=== PATIENT | male | born 1950 | race Caucasian/White ===

== ENCOUNTER 2016-12-24 11:52 | Inpatient (IN) | payer MEDICARE ==
--- NOTE | ~2016-12-24 | HP ---
Unit #: [id number] #: [id number] Patient: PRITI HELM [id number] [address] [place], [place] [address] [id number] I MR#: [id number] NAME: PRITI HELM. ROOM: [id number] Age: 66 Sex: M Admission Date: 12/24/2016 : 1950 Attending Physician: Macie Odom M.D. Primary Care Physician: Antonino Hanson M.D. HISTORY AND PHYSICAL REASON FOR ADMISSION Scrotal abscess. HISTORY OF PRESENT ILLNESS The patient is a 66-year-old male who underwent an inflatable penile prosthesis by my partner, Dr. Jamshid Oconnell, in 2012. Patient presents with a two-day history of scrotal pain and swelling after using his inflatable penile prosthesis. He has had no fevers or chills. He is on Coumadin for a mitral valve replacement and atrial fibrillation. PAST MEDICAL HISTORY 1. Congestive heart failure. 2. Stroke. 3. Hypertension. 4. Hyperlipidemia. 5. Guillain-Buffalo syndrome. 6. Atrial fibrillation. PAST SURGICAL HISTORY 1. Inflatable penile prosthesis. 2. Mitral valve replacement. 3. Jaw surgery for some type of malignancy. HOME MEDICATIONS Documented in the chart. ALLERGIES No known drug allergies. SOCIAL HISTORY Negative for tobacco, alcohol, or drug use. REVIEW OF SYSTEMS Negative for fever, negative for chills. Positive for scrotal pain. PHYSICAL EXAMINATION VITAL SIGNS: Temperature 98.7, blood pressure 157/71, pulse 82, and respirations 18. HEENT: Normocephalic and atraumatic. Patient is breathing comfortably. ABDOMEN: Soft, nontender, and nondistended. GENITOURINARY: Cylinders of his penile prosthesis, as well as the pump are intact. Well below this in the upper perineal area is an area of induration. There is no cellulitis. There is no purulence. Unit #: [id number] #: [id number] Patient: PRITI HELM DIAGNOSTIC STUDIES LABORATORY: Significant for white blood cell count of 9.8 and creatinine of 1. Hemoglobin is 12.8. INR is 2.8. ASSESSMENT AND PLAN Scrotal or perineal abscess. I do think he needs an incision and drainage, but his INR is 2.8. We will give him fresh frozen plasma tonight, and he will likely need incision and drainage tomorrow. He is nontoxic. He will be started on Zosyn and vancomycin. He understands that this may ultimately require removal of his inflatable penile prosthesis, but it may not be communicating, and there is a possibility that it may be savable at this point. We appreciate the opportunity to participate in his care. Dictated by Antonella Mckeon/selam TD: 12/24/2016 18:56 JOB #: [id number] HISTORY AND PHYSICAL X Beneditco Wei MD X HISTORY AND PHYSICAL
--- NOTE | ~2016-12-24 | CR72 ---
[facility] A Service of [facility] & [facility] RADIOLOGY TEXT RESULTS PATIENT: PRITI HELM LOCATION: [facility] : 48 UNIT #: [id number] AGE: [address]: Macie Odom MD SEX: M ORDER DR: [id number] [facility] [address] [facility]. [place], [place] [address] [id number] I MR#: [id number] Acc #: [id number] NAME: PRITI HELM. : 1950 SEX: M STUDY DATE/TIME: 12/24/2016 20:22 UNIT: [facility] ROOM: [facility] STUDY DESCRIPTION: CR Chest Single View Portable Attending Physician: Macie Odom M.D. Ordering Physician: Macie Odom M.D. Primary Care Physician: Antonino Hanson M.D. MEDICAL IMAGING REPORT This report is preliminary unless electronic signature is present EXAM Single view chest, 12/24/16 at 20:22 hours COMPARISON STUDIES Single view chest dated 12/09/15 at 11:33 hours HISTORY Preop evaluation post scrotal cellulitis and pain which started on Friday. History of lymphoma. FINDINGS Single view of the chest was obtained. Postoperative cardiac changes are noted with aortic valve replacement, stable. Heart is of normal size. Lungs do not demonstrate any superimposed acute abnormality. No pleural effusion, pneumothorax or obvious lung mass. Dictated by... Serafin Harrell M.D. THIS IS AN ELECTRONICALLY VERIFIED REPORT Serafin Harrell M.D. at 12/25/2016 10:44 AM CPR/ea TD: 12/25/2016 04:52 JOB #: [id number] MEDICAL IMAGING REPORT COPY
--- NOTE | ~2016-12-24 | OR ---
Unit #: [id number] #: [id number] Patient: PRITI HELM [id number] [address] [place], [place] [address] [id number] I MR#: [id number] NAME: PRITI HELM. ROOM: [facility] Date of Procedure: 12/25/2016 Admission Date: 12/24/2016 Surgeon: Jamshid Oconnell M.D. : 1950 Attending Physician: Macie Odom M.D. Primary Care Physician: Antonino Hanson M.D. OPERATIVE REPORT PREOPERATIVE DIAGNOSES History of penile prosthesis, perineal abscess. POSTOPERATIVE DIAGNOSES History of penile prosthesis, perineal abscess. PROCEDURE PERFORMED I and D of perineal abscess. ANESTHESIA General. ESTIMATED BLOOD LOSS Minimal. FLUIDS Crystalloid. DRAINS None. SPECIMENS Wound swab for culture and sensitivity. COMPLICATIONS None. CONDITION Stable. INDICATIONS FOR PROCEDURE The patient has a history of perineal abscess, history of inflatable penile prosthesis, presents today for I and D of perineal abscess. The risks, benefits and alternatives of the procedure were extensively counseled to the patient. Chief among these are bleeding, infection, injury to the surrounding soft tissues, need for further procedure. We discussed risk of involvement of IPP, requiring explantation and anesthetic complications. An informed consent was obtained. The patient elected to proceed. DESCRIPTION OF PROCEDURE The patient was properly identified, brought back to the operating room, Unit #: [id number] #: [id number] Patient: PRITI HELM having received preoperative broad-spectrum IV antibiotics of vancomycin and gentamicin. The patient was placed on the operating table in supine position. Following induction of general anesthesia, the patient was placed in the dorsal lithotomy position. The patient's genitals were prepped and draped in sterile fashion. Perineal abscess was opened with a 10 blade scalpel for approximately 5 cm with evacuation of purulent return. This was swabbed for culture and sensitivity. We explored the pocket, which tracked lateral to the scrotum, back towards the anus, stopping approximately 3 to 4 cm shy of the anus itself. This tracked lateral to the scrotum on both sides, but did not appear to involve the IPP directly or any of the tubing or components. We copiously irrigated the wound and obtained hemostasis with Bovie electrocautery and packed the wound with moist Kerlix roll. The patient tolerated the procedure with no complications. Dictated by... Antonella Jules/leticia TD: 12/26/2016 04:11 JOB #: [id number] OPERATIVE REPORT X Jamshid Oconnell MD X PROCEDURE OPERATIVE NOTE
--- NOTE | ~2016-12-24 | CO ---
Unit #: [id number] #: [id number] Patient: PRITI HELM [id number] [address] [address] [id number] I MR#: [id number] NAME: PRITI HELM. ROOM: 225 Age: 66 Sex: M Admission Date: 12/24/2016 : 1950 Attending Physician: Macie Odom M.D. Primary Care Physician: Antonino Hanson M.D. Consultation Date: 12/27/2016 CONSULTATION REPORT REASON FOR CONSULTATION Antibiotic management in a patient with scrotal abscess. HISTORY OF PRESENT ILLNESS This is a 66-year-old male who for the last week or so at home had a developing boil on his scrotum per patient report. The patient reports that he did not feel well, but did not have any specific fever or temperature. The patient as using a topical agent on his scrotal wound, but it did not improve. The patient was admitted to the hospital for further intervention. The patient does have a history of an implantable penile prosthetic placed in 2012. He also had a history of a MVR as well. The patient is now status post incision and drainage of abscess in the scrotal region. Per the operative note, it does not involve the penile implant. Cultures have grown MRSA and the patient is maintained on vancomycin and Zosyn. Due to the patient having a history of an artificial heart valve and penile implant, infectious disease is asked to evaluate for further antibiotic management. PAST MEDICAL HISTORY 1. Congestive heart failure. 2. Stroke. 3. Hypertension. 4. Hyperlipidemia. 5. Guillain Downs syndrome in 2008. 6. Atrial fibrillation. PAST SURGICAL HISTORY 1. Implantable penile prosthetic. 2. Mitral valve replacement. 3. Jaw surgery for unknown malignancy. SOCIAL HISTORY No tobacco, alcohol or drug use. ALLERGIES No known drug allergies. CURRENT MEDICATIONS 1. Vancomycin. 2. Zosyn. 3. For further medications please refer to the patient's MAR. REVIEW OF SYSTEMS The patient reports some subjective fever, but no current fever, chills or Unit #: [id number] #: [id number] Patient: PRITI HELM sweats. He denies any nausea, vomiting or diarrhea. He denies any shortness of breath or chest pain. The patient does report some discomfort in his scrotal region and also developing in his left groin region. PHYSICAL EXAMINATION GENERAL: The patient is in no apparent distress. He is resting in the bed comfortably. VITALS: Temperature 98.1 with a T-max of 100.7, pulse 82, blood pressure 151/67, respiratory rate 16. HEENT: Pupils are equal. NECK: Supple. LUNGS: Clear to auscultation bilaterally with no wheezes or rhonchi noted. HEART: S1 and S2. Regular rate and rhythm. ABDOMEN: Positive bowel sounds. Soft and nontender with no organomegaly appreciated. EXTREMITIES: No clubbing, cyanosis or edema. GENITALIA: His scrotal wound has recently been packed by the staff and there is no report of purulent drainage. There was noted to be some left groin induration and erythema noted. DIAGNOSTIC STUDIES IMAGING: Ultrasound of the scrotum on 12/24/2016 showed penile pump within the scrotum that was intact. No free fluid in the scrotum. Skin thickening suspicious for cellulitis with small abscess. LABORATORY: BUN 24, creatinine 1.3, sodium 135, potassium 3.5, chloride 107, CO2 25, bilirubin 1.4, AST 20, ALT 12. White blood cell count 6.2, hemoglobin 10.6, hematocrit 31, platelets 140. Urinalysis is unremarkable. Groin culture from 12/25/2016 shows MRSA with an (1) to vancomycin of 1. Urine culture is negative. ASSESSMENT/PLAN This is a 66-year-old male with a history of penile pump implantation as well as mitral valve replacement. The patient lives at home and developed a one-week history of scrotal abscess. The patient is status post incision and drainage with cultures showing MRSA. At this time the patient is not febrile and appears stable, but due to history of multiple artificial devices in place will recommend to continue vancomycin. Will discontinue Zosyn and add Flagyl for additional anaerobic coverage. Will also consider adding rifampin. Will check blood cultures times two 30 minutes apart. Will check a CBC and BMP in the a.m. and will also check a CT scan of the pelvis to rule out any new or developing abscess in light of his left groin induration and erythema that is developing. His case will be discussed with Dr. Benson Dhaliwal, who will evaluate later today. Thank you for allowing us to participate in the care of this patient. Further recommendations will follow pending the patient's clinical course. Dictated by... Jaki Law A.P.R.N. SLS/gz TD: 12/27/2016 10:21 Unit #: [id number] #: [id number] Patient: PRITI HELM JOB #: [id number] CONSULTATION REPORT X X CONSULTATION REPORT
--- NOTE | ~2016-12-24 | CO ---
Unit #: [id number] #: [id number] Patient: PRITI HELM [id number] [address] [address] [id number] I MR#: [id number] NAME: PRITI HELM. ROOM: 225 Age: 66 Sex: M Admission Date: 12/24/2016 : 1950 Attending Physician: Macie Odom M.D. Primary Care Physician: Antonino Hanson M.D. Consultation Date: 12/24/2016 CONSULTATION REPORT ADDENDUM I spoke with Dr. Yen, who was talent acquisition assistant for Dr. Wei, with Urology regarding FFP in a patient with mechanical valve. He agreed that we would hold the FFP and give p.o. vitamin K. Dictated by... Macie Odom M.D. KEO/jonathan TD: 12/24/2016 21:16 JOB #: [id number] CONSULTATION REPORT X Macie Oodm MD X CONSULTATION REPORT
--- NOTE | ~2016-12-24 | CO ---
Unit #: [id number] #: [id number] Patient: PRITI HELM [id number] [address] [place], [place] [address] [id number] I MR#: [id number] NAME: PRITI HELM. ROOM: 225 Age: 66 Sex: M Admission Date: 12/24/2016 : 1950 Attending Physician: Macie Odom M.D. Primary Care Physician: Antonino Hanson M.D. Consultation Date: 12/24/2016 CONSULTATION REPORT REASON FOR CONSULTATION Medical management. HISTORY OF PRESENT ILLNESS The patient is a 66-year-old male with a past medical history of hypertension, hyperlipidemia, cerebrovascular accident, Guillain-Bogue Chitto syndrome, atrial fibrillation, valvular heart disease, and chronic anticoagulation, who was admitted by Dr. Wei for a scrotal abscess. HIPS was consulted for medical management. The patient has a penile implant. He noticed a bump in his scrotal area two days ago. He states that it has increased in size and has become increasingly painful. He states that he has had chills and undocumented fever. He denies any vomiting or diarrhea, no chest pain or difficulty breathing, no cough or cold symptoms, no urinary symptoms, and no abdominal pain. In the emergency department, a scrotal ultrasound was done and showed findings concerning for cellulitis. White blood cell count is 9.8. INR was 2.8. Again, he was admitted by Dr. Wei for further treatment. He has started him on Zosyn and vancomycin and plans for incision and drainage in the morning. PAST MEDICAL HISTORY 1. Admission to [facility] December 09-2015, for left lower extremity abscess and cellulitis. He underwent incision and drainage during that admission. 2. Chronic atrial fibrillation. 3. Congestive heart failure. 4. Valvular heart disease, status post mechanical mitral valve replacement. 5. History of cerebrovascular accident. 6. Hypertension. 7. Hyperlipidemia. PAST SURGICAL HISTORY 1. Mitral valve replacement with mechanical valve. 2. Penile implant. 3. Jaw surgery. SOCIAL HISTORY The patient lives with his girlfriend. There is no tobacco, alcohol, or illicit drug use. FAMILY HISTORY His mother had a brain tumor, and his dad had lung cancer. Unit #: [id number] #: [id number] Patient: PRITI HELM ALLERGIES No known allergies. HOME MEDICATIONS 1. Vitamin E. 2. Warfarin. 3. Omeprazole. 4. Metoprolol. 5. Flomax. 6. Simvastatin. REVIEW OF SYSTEMS A complete review of systems is negative except as indicated in the History of Present Illness. PHYSICAL EXAMINATION VITAL SIGNS: Temperature is 98, pulse 80, respirations 15, and blood pressure 145/72. GENERAL: Patient is a male who is awake and alert. HEENT: Head is atraumatic. Mucous membranes are moist. NECK: Supple. Trachea is midline. CARDIOVASCULAR: Regular rate and rhythm. LUNGS: Clear to auscultation bilaterally with no increased work of breathing. ABDOMEN: Soft and nontender with bowel sounds present in all four quadrants. EXTREMITIES: Nontender with no pedal edema. NEUROLOGIC: Patient is awake and alert. He follows commands. PSYCHIATRIC: Mood and affect are normal. Patient is cooperative. SKIN: Skin of examined areas is warm and dry. DIAGNOSTIC STUDIES LABORATORY: INR is 2.8. Complete blood count notable for hemoglobin and hematocrit of 12.8 and 37.3, respectively, and platelets are 134,000. Basic metabolic panel notable for a potassium of 3.4. IMAGING: Scrotal ultrasound shows findings suggestive of cellulitis. ASSESSMENT The patient is a 66-year-old male with: 1. Scrotal abscess. Dr. Wei has ordered two units of fresh frozen plasma. The patient does have a history of mechanical valve. I was going to discuss with him whether or not the procedure was needed emergently. Perhaps vitamin K could be given and surgery delayed a couple of days withholding Coumadin. He may need cardiac clearance as well. 2. Hypokalemia. 3. Hypertension. 4. Hyperlipidemia. 5. History of cerebrovascular accident. 6. History of Guillain-Bogue Chitto syndrome. 7. History of atrial fibrillation. 8. Valvular heart disease, status post mitral valve replacement with mechanical valve. 9. Chronic anticoagulation with Coumadin. The patient's INR is 2.8. PLAN 1. Regarding possible incision and drainage in the morning, I have Unit #: [id number] #: [id number] Patient: PRITI HELM ordered an EKG, as well as chest x-ray as a part of preoperative evaluation. I am also waiting for a call from Dr. Wei as stated above regarding use of FFP. I have ordered vitamin K. Will also consult Dr. Mcclendon for cardiac clearance if okay with Dr. Wei. 2. Regarding hypokalemia, I have ordered potassium/magnesium protocol. Thank you very much for the consultation. Will follow patient along closely with you. Dictated by... Antonella Mckeon/selam TD: 12/24/2016 21:15 JOB #: [id number] CONSULTATION REPORT X Macie Odom MD X CONSULTATION REPORT
--- NOTE | ~2016-12-24 | DS ---
Unit #: [id number] #: [id number] Patient: PRITI HELM [id number] [address] [place], [place] [address] [id number] I MR#: [id number] NAME: PRITI HELM. ROOM: 225 Age: 66 Sex: M Admission Date: 12/24/2016 : 1950 Discharge Date: 12/29/2016 Attending Physician: Macie Odom M.D. Primary Care Physician: Antonino Hanson M.D. DISCHARGE SUMMARY FINAL DIAGNOSIS Scrotal abscess status post incision and drainage. SECONDARY DIAGNOSES 1. Congestive heart failure. 2. Stroke. 3. Hypertension. 4. Hyperlipidemia. 5. Guillain-Chrisney syndrome. 6. Atrial fibrillation. 7. Mechanical mitral valve. CONSULTS 1. Dr. Wei, urology. 2. Dr. Mcclendon, cardiology. 3. Dr. Dhaliwal, infectious disease. PROCEDURES The patient had, on December 25, 2016, I and D of perineal abscess. HOSPITAL COURSE The patient is a 66 year old who presented with swelling and redness of his scrotum. He had been diagnosed with abscess of his groin, and this ended up being incised and drained on December 25. He does have a mechanical mitral valve, for which he was put on heparin. However, immediately postop he was being transitioned back to Coumadin while still on heparin. The patient insists on going home today and states that he has been bridged with Lovenox in the past while waiting to be therapeutic on Coumadin for all his procedures, and since this being the only issue at this point, I have had a discussion with Dr. Mcclendon and we have agreed that he will go home on Lovenox 1 mg/kg subcu b.i.d. with Coumadin 5 mg p.o. daily. He will have his ProTime checked on 12/31/16. He does attend a Coumadin clinic he tells me. The patient also tells me that he does have about 7 doses of Lovenox residual from his last bridging treatment. Other than that, his pain seems to be well controlled. He is evaluated, suitable and stable for discharge. He will be discharged in stable condition. Dr. Dhaliwal of infectious disease recommends he be transitioned to Zyvox 600 mg p.o. b.i.d. until 01/07/17. MEDICATIONS ON DISCHARGE 1. Flomax 0.4 mg p.o. daily. 2. Coumadin 5 mg p.o. daily. 3. Lopressor 50 mg p.o. b.i.d. 4. Vitamin E 400 units p.o. b.i.d. Unit #: [id number] #: [id number] Patient: PRITI HELM 5. Simvastatin 20 mg p.o. daily. 6. Omeprazole 20 mg p.o. daily. 7. Potassium 10 mEq p.o. daily per home dose. 8. Lovenox 80 mg subcu b.i.d. 9. Zyvox 600 mg p.o. b.i.d. for 9 days until 01/07/17. DISCHARGE PLAN The patient will attend the Coumadin clinic on 12/31/16 and follow up with his PCP in the next 3-5 days. NOTE: Time spent coordinating discharge was about 40 minutes. The shoe parts caser will ensure that the patient is able to obtain Zyvox prior to discharge. He will also be discharged home with home health. Dictated by... Antonella Villanueva TD: 12/29/2016 13:35 JOB #: [id number] DISCHARGE SUMMARY X Roland Galicia MD X DISCHARGE SUMMARY
--- NOTE | ~2016-12-24 | EKG ---
PATIENT: PRITI HELM UNIT #: [id number] Ventricular Rate: 90 BPM Atrial Rate: 90 BPM P-R Interval: 188 ms QRS Duration: 98 ms Q-T Interval: 388 ms QTC Calculation(Bezet): 474 ms P Westover: 46 degrees Calculated R Westover: 18 degrees Calculated T Westover: -171 degrees Diagnosis Line: Normal sinus rhythm Diagnosis Line: Left ventricular hypertrophy with repolarization Diagnosis Line: abnormality Diagnosis Line: Abnormal ECG Diagnosis Line: When compared with ECG of 09-DEC-2015 11:12, Diagnosis Line: Aberrant conduction is no longer Present Diagnosis Line: QT has shortened Diagnosis Line: Confirmed by JENNIFER MARTINEZ MD ([id number]) on 12/26/2016 Diagnosis Line: 11:13:37 AM INTERPRETING MD: MICHELLE ALMONTE
--- NOTE | ~2016-12-24 | CT105 ---
[facility] A Service of [facility] & [facility] RADIOLOGY TEXT RESULTS PATIENT: PRITI HELM LOCATION: C2A : 48 UNIT #: [id number] AGE: [address]: Macie Odom MD SEX: M ORDER DR: [id number] [facility] [address] [facility]. [place], [place] [address] [id number] I MR#: [id number] Acc #: [id number] NAME: PRITI HELM : 1950 SEX: M STUDY DATE/TIME: 12/27/2016 13:22 UNIT: [facility] ROOM: [facility] STUDY DESCRIPTION: CT Pelvis W Cont Attending Physician: Macie Odom M.D. Ordering Physician: Benson Dhaliwal M.D. Primary Care Physician: Antonino Hanson M.D. MEDICAL IMAGING REPORT This report is preliminary unless electronic signature is present EXAM CT pelvis with contrast. DATE OF EXAM 12/27/2016 HISTORY 66-year-old male with possible abscess around penile implant. Implant place 2012. TECHNIQUE Axial images performed through the pelvis following IV contrast. Sagittal and coronal reconstructed images reviewed at a workstation. NOTE: This CT exam was performed with one or more of the following radiation dose reduction techniques: automatic exposure control, adjustment of mA and/or kV according to patient size, and iterative reconstruction. FINDINGS Examination demonstrates a penile implant in place. At the penile base and along the anterior scrotum, there is skin thickening, soft tissue swelling and edema with some enhancement postcontrast. Findings concerning for cellulitis or phlegmon. A distinct drainable fluid collection not identified. Small amount of gas is seen in the left inguinal ring, nonspecific, correlate for any invasive procedure. No penetrating ulcer identified. The balloon reservoir is noted within the right lower anterior pelvis just deep to the right rectus abdominus muscle. It appears intact. Mild induration of the subcutaneous tissues in the anterior lower pelvis and overlying the left hip region could represent regional spread of infection or cellulitis or possibly dependent edema. There are a few bilateral inguinal lymph nodes which are reactive. Internal pelvic structures to include the bladder and prostate unremarkable. The visualized GI tract to include the appendix unremarkable. Osseous structures remarkable for L4-5, L5-S1 degenerative STS. [facility] A Service of [facility] RADIOLOGY TEXT RESULTS PATIENT: PRITI HELM LOCATION: [facility] 225-01 : [birth year] UNIT #: [id number] AGE: [address]: Macie Odom MD SEX: M ORDER DR: disc disease. Hip and SI joints unremarkable. IMPRESSION Extensive soft tissue swelling and edema involving the base of the penis and along the anterior scrotum with skin thickening and edema and subtle enhancement postcontrast. Findings nonspecific, but may represent cellulitis or phlegmon. A distinct drainable abscess identified. Patient is status post penile implant with the implant components in expected position. There is a small amount of gas within the left inguinal canal, nonspecific could be related to invasive procedure. Developing gas-forming infection not excluded, correlate with any invasive procedures. There is also some induration edema in the anterior pelvic wall and extending over the left gluteal region. Dictated by... Elizabeth Guzman M.D. THIS IS AN ELECTRONICALLY VERIFIED REPORT Elizabeth Guzman M.D. at 12/30/2016 7:40 AM DILAN/rico TD: 12/27/2016 18:36 JOB #: [id number] MEDICAL IMAGING REPORT COPY
--- NOTE | ~2016-12-24 | CO ---
Unit #: [id number] #: [id number] Patient: PRITI NUNEZ [id number] [address] [place], [place] [address] [id number] MR#: [id number] NAME: PRITI NUNEZ. ROOM: 225 Age: 66 Sex: M Admission Date: 12/24/2016 : 1950 Attending Physician: Macie Odom M.D. Primary Care Physician: Antonino Hanson M.D. Consultation Date: 12/25/2016 CONSULTATION REPORT REASON FOR CONSULTATION Management of anticoagulation. Has a history of mechanical mitral valve replacement. HISTORY OF PRESENT ILLNESS This is a 66-year-old white male who has a known history of having mitral valve replaced back on 2008 secondary to endocarditis. Also had septic emboli. Had a stroke, also Guillain-Bell during that period of time. He has hypertension, hyperlipidemia. He follows Dr. Shawn Glover for his valve disease and he gets his INRs in Dr. Hanson's office for management. The patient saw Dr. Glover within the last year and had a stress test one or two years ago. He was told it was normal. He also mentioned that when he had his valve replaced he had a cardiac cath and there were no major blockages. The patient came in the emergency room with complaints of swelling and pain in his scrotal area. He has a history of an inflatable penile prosthesis that was placed back in 2012. He denies any fever or chills. He has not had any other recent illness. The patient denies any chest pain, palpitations, dizziness, swelling. We have been asked to help manage his anticoagulation for this procedure. Plans are to have an incision and drainage of a scrotal or perineal abscess. The patient's INR was 2.8 and on admission he got 5 mg of p.o. vitamin K and his INR today is 2.1 and was started on IV antibiotics, Zosyn and vancomycin. He did have an ultrasound of his scrotum and showed cellulitis. PAST MEDICAL HISTORY 1. 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 Also had a stroke back in 2008 during that same time and history of Guillain-Bell syndrome. 2. Hypertension. 3. Hyperlipidemia. 4. Cardiac cath back in 2008. Reports there were no major blockages at the time of his mitral valve replacement. 5. History of inflatable penile prosthesis [place] [address] Jamshid Oconnell. 6. 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 Had chemo under the care of Dr. Mclaughlin. 7. Had a stress test within the last one to two years by Dr. Glover, told was normal. 8. 2D echo obtained from Dr. Glover' office done on 11/23/2015 reveals LVEF of 50% to 55%, right ventricular global systolic function is mildly reduced, mild aortic stenosis, trace of aortic regurgitation. Mechanical prosthetic mitral valve is present, appears well-seated with normal function and moderate tricuspid regurgitation with elevated RVSP of 27 mmHg and mild pulmonic regurgitation. Unit #: [id number] #: [id number] Patient: PRITI NUNEZ 9. Also, 10/2015, a nuclear cardiac stress test revealed a small, mild, fixed inferior wall perfusion abnormality, most likely tissue attenuation. No tissue attenuation is probably more likely. No ischemia. (1) was not done on this study. PAST SURGICAL HISTORY 1. 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 2. Jaw surgery back in 2012. MEDICATIONS 1. Flomax 0.4 mg p.o. daily. 2. Vitamin E 400 units p.o. twice daily. 3. Coumadin 5 mg p.o. daily. 4. Omeprazole 20 mg p.o. daily. 5. Simvastatin 20 mg p.o. daily. 6. Metoprolol 50 mg p.o. twice daily. 7. Potassium chloride 10 mEq p.o. daily. ALLERGIES No known drug allergies. SOCIAL HISTORY Patient lives with his girlfriend. He has been a lifelong nonsmoker. No alcohol or illicit drug abuse. FAMILY HISTORY His father from lung cancer. His mother from brain cancer. He had a sibling that from brain cancer from a tumor. REVIEW OF SYSTEMS See details in HPI. PHYSICAL EXAMINATION GENERAL: On exam, Mr. Nunez is a 66-year-old white male in no acute respiratory distress. He is awake, alert and oriented. VITAL SIGNS: Blood pressure is 119/67, heart rate 88, respirations 16, temperature 98.3, O2 sats 98% on room air. NECK: Trachea midline. No thyromegaly or lymphadenopathy. Normal carotid upstrokes. No jugular venous distention. HEART: S1, S2. Regular rate and rhythm. Clicks from the mechanical valve noted in left sternal border. LUNGS: Slightly diminished, otherwise clear. ABDOMEN: Soft, nontender. Positive bowel sounds present. EXTREMITIES: Pedal pulses are palpable. No pedal edema. DIAGNOSTIC STUDIES LABORATORY: Glucose is 106, BUN 23, creatinine 1.2, eGFR is above 60. Sodium 133, potassium 3.6, chloride is 105, CO2 26, calcium is 8.0, magnesium is 1.9. Total protein is 7.1, albumin 3.7, bili total 1.4, AST 20, ALT 12, alkaline phos. 78. WBC 10.3, hemoglobin 12.1, hematocrit 35.6, platelets 148. Protime is 22.4 with an INR of 2.1. On admission, his protime was 30.6 with an INR of 2.8. Unit #: [id number] #: [id number] Patient: PRITI NUNEZ IMAGING: Chest x-ray shows heart normal size, nothing acute. Ultrasound of the scrotum shows significant skin thickening in the inferior scrotum. No free fluid in the scrotum. Suspicious for cellulitis with small abscesses. CARDIOVASCULAR: EKG shows normal sinus rhythm with left ventricular hypertrophy. ST-T wave abnormalities in lateral leads. Intraventricular conduction delay. Ventricular rate is 90 beats per minute. IMPRESSION 1. Scrotal/perineal abscess. 2. History of inflatable penile prosthesis. 3. History of mechanical mitral valve replacement back in 2008. 4. Hypertension. 5. Hyperlipidemia. 6. Previous stroke in 2008 from septic emboli. 7. History in 2008 of Guillain-Bell syndrome. 8. History of parotic lymphoma and had jaw surgery back in 2012. 9. Normal stress test of one to two years ago, follows with Dr. Glover. 10. Nonsmoker. PLAN 1. Cardiology consult to assist with evaluation and management of managing the anticoagulation therapy. 2. Patient had vitamin K 5 mg p.o. x1. Will further reverse with two units of FFP and then get a protime and INR one hour after. 3. Patient is on Zosyn and vancomycin. Will go ahead and give IV antibiotics nieves-procedure with additional gentamicin IV x1 on-call to the procedure. 4. After the procedure, (2) will instruct when we can start a heparin drip on the low dose heparin protocol with no initial bolus. On exam, there are no signs or symptoms of unstable angina or acute congestive heart failure. Vital signs are stable. The patient is on metoprolol in addition to statin. That will be continued. On admission, patient's potassium was 3.4 and it was supplemented and he is on oral potassium. Further recommendations pending per Dr. Juarez. Thank you very much for allowing us to assist in his care. We will follow this patient closely. Dictated by... Nayeli Michael A.P.R.N. for Antonella Cabezas/matt TD: 12/26/2016 05:37 JOB #: [id number] CC: Shawn Glover M.D. Unit #: [id number] #: [id number] Patient: PRITI NUNEZ CONSULTATION REPORT X Nayeli Michael APRN X CONSULTATION REPORT
--- NOTE | ~2016-12-24 | EKG ---
PATIENT: PRITI HELM UNIT #: [id number] Ventricular Rate: 75 BPM Atrial Rate: 75 BPM P-R Interval: 196 ms QRS Duration: 100 ms Q-T Interval: 446 ms QTC Calculation(Bezet): 498 ms P [place]: 90 degrees Calculated R [place]: 8 degrees Calculated T [place]: 38 degrees Diagnosis Line: Normal sinus rhythm Diagnosis Line: Left ventricular hypertrophy with repolarization Diagnosis Line: abnormality Diagnosis Line: Prolonged QT Diagnosis Line: Abnormal ECG Diagnosis Line: When compared with ECG of 24-DEC-2016 20:25, Diagnosis Line: (unconfirmed) Diagnosis Line: No significant change was found Diagnosis Line: Confirmed by FRANCIA RUSSO MD ([id number]) on 12/25/2016 Diagnosis Line: 7:40:55 PM INTERPRETING MD: KARAN ALMONTE
--- NOTE | ~2016-12-24 | US115 ---
[facility] A Service of [facility] & [facility] RADIOLOGY TEXT RESULTS PATIENT: PRITI HELM LOCATION: [place] [address] : [birth year] UNIT #: [id number] AGE: [address]: Macie Odom MD SEX: M ORDER DR: [id number] [facility] [address] [place], [place] [address] [id number] MR#: [id number] Acc #: [id number] NAME: PRITI HELM : 1950 SEX: M STUDY DATE/TIME: 12/24/2016 12:29 UNIT: [facility] ROOM: STUDY DESCRIPTION: US Scrotum and Contents Attending Physician: Ravi Caldwell Ordering Physician: Ed Doctor [id number] [facility] Primary Care Physician: Antonino Hanson M.D. MEDICAL IMAGING REPORT This report is preliminary unless electronic signature is present EXAM Scrotal ultrasound INDICATION Palpable mass in the inferior aspect of the scrotum for the past 3 days. Patient has a saline penile pump in the mid scrotum. Scrotal pain and swelling since Friday. PROCEDURE Mayo-scale and Doppler imaging of the scrotum and scrotal contents. COMPARISON None. FINDINGS There is significant skin thickening in the inferior scrotum, with a few areas of heterogeneous decreased echotexture, 1 measuring 1.5 cm. They show no definite internal flow. The right testicle has nonspecific heterogeneous echotexture and measures 2.6 x 1.6 x approximately 3.9 cm. No mass and normal flow. There is a 5 mm right epididymal cyst. The left testicle measures 2.9 x 1.9 x 3.6 cm. No mass. Detectable flow. There is a penile pump seen in the scrotum. It is filled with fluid. There is no appreciable free fluid in the scrotum. IMPRESSION 1. Penile pump seen in the scrotum appears to be intact. There is no free fluid in the scrotum. 2. Significant skin thickening with a few areas of more organized decreased echotexture in the inferior scrotum. The skin thickening is hypervascular. It is suspicious for cellulitis with small abscesses. [facility] A Service of [facility] & [facility] RADIOLOGY TEXT RESULTS PATIENT: PRITI HELM LOCATION: [place] [address] : [birth year] UNIT #: [id number] AGE: [address]: Macie Odom MD SEX: M ORDER DR: Correlate with the patient's clinical presentation and direct inspection. 3. If there is ongoing concern for the integrity of the scrotal pump reservoir, a CT may be helpful. Dictated by... Yuri Woods M.D. THIS IS AN ELECTRONICALLY VERIFIED REPORT Yuri Woods M.D. at 12/25/2016 7:08 AM KIAH/freddy TD: 12/24/2016 13:44 JOB #: [id number] MEDICAL IMAGING REPORT COPY
[~2016-12-24 11:52] MED LIST: ACYCLOVIR PO; ASPIRIN PO; BACTRIM DS TABL1 TA1 PO; BACTROBAN22 GM TOP; CIALIS PO; COLACE PO; COUMADIN PO; COUMADIN5 MG PO; DICLOFENAC PO; FAMOTIDINE PO; FLOMAX0.4 M1 PO; HYDROCODON-ACE1 EAC5 PO; KCL PO; LASIX PO; LIPITOR PO; LISINOPRIL-HCTZ1 T14 PO; LISINOPRIL10 MG PO; LOPRESSOR PO; LOTREL PO; LOVENOX SUBQ; LOVENOX80 MG/0.8 INJ; NIFEREX-150150 MG PO; OMEPRAZOLE20 M2 PO; POTASSIUM CHLO10 ME1 PO; PRILOSEC20 M1 PO; SIMVASTATIN20 MG PO; TRICOR PO; TYLENOL EXTRA500 M1 PO; VALTREX PO; VICODIN 5/500 T1 TAB PO; VITAMIN E400 UNI2 PO; ZOCOR PO
[2016-12-24 12:57] LABS: URINE SOURCE CLEAN CATCH
[2016-12-24 13:04] LABS: URINE APPEARANCE CLEAR; URINE BILIRUBIN NEG (NEG); URINE BLOOD NEG (NEG); URINE COLOR YELLOW; URINE GLUCOSE NEG (NEG); URINE KETONE NEG (NEG); URINE LEUKOCYTE ESTERASE NEG (NEG); URINE NITRATE NEG (NEG); URINE PH 5.5 (5-8); URINE PROTEIN NEG (NEG); URINE SPECIFIC GRAVITY 1.028 (1.003-1.035)
[2016-12-24 13:10] LABS: CULTURE INDICATED? NO
[2016-12-24 14:10] LABS: INR 2.8; PROTHROMBIN TIME (PATIENT) 30.6 SECONDS (9.6-11.5)
[2016-12-24 14:28] LABS: BASOPHIL% 0.2 % (0-2.5); DIFF IND NO; EOSINOPHIL# 0.1 X10e3 (0-0.7); EOSINOPHIL% 0.7 % (0.0-7.0); HEMATOCRIT 37.3 % (38.0-50.0); HEMOGLOBIN 12.8 gm/dL (13.0-16.0); LYMPHOCYTE# 1.1 X10e3 (1.0-3.5); LYMPHOCYTE% 10.8 % (17.0-45.0); MEAN CELL VOLUME 88.7 FL (83-96); MEAN CORPUSCULAR HEMOGLOBIN 30.3 PG (28-34); MEAN CORPUSCULAR HGB CONC 34.2 g/dL (30-36); MEAN PLATELET VOLUME 8.4 FL (6.5-11.5); NEUTROPHIL# 7.7 X10e3 (1.5-7.1); NEUTROPHIL% 78.3 % (40-75); PLATELET COUNT 134 X10e3 (140-420); RED CELL DISTRIBUTION WIDTH 14.2 % (11.0-15.5); WHITE BLOOD COUNT 9.8 X10e3 (4.0-10.5)
[2016-12-24 15:07] LABS: BLOOD UREA NITROGEN 21 mg/dL (9-23); CALCIUM SERUM 8.5 mg/dL (8.4-10.2); CARBON DIOXIDE 28 mmol/L (22-31); CHLORIDE 103 mmol/L (100-111); GLOM FILT RATE Estimated ABOVE60 mL/min (>60); GLUCOSE FASTING 96 mg/dL (70-110); POTASSIUM 3.4 mmol/L (3.5-5.1); SODIUM 137 mmol/L (135-145)
[2016-12-24] MEDS ORDERED: FLOMAX0.4 M1 PO (16:52)
[2016-12-24] MEDS ORDERED: COUMADIN5 MG PO (16:53)
[2016-12-24] MEDS ORDERED: VITAMIN E400 UNI2 PO (16:53)
[2016-12-24] MEDS ORDERED: SIMVASTATIN20 MG PO (16:54)
[2016-12-24] MEDS ORDERED: OMEPRAZOLE20 M1 PO (16:54)
[2016-12-24] MEDS ORDERED: LOPRESSOR PO (16:55)
[2016-12-24] MEDS ORDERED: POTASSIUM CHLO10 ME1 PO (16:56)
[2016-12-24 21:39] LABS: ALBUMIN SERUM 4.2 g/dL (3.5-5.0); BILIRUBIN, DIRECT 0.1 mg/dL (0.0-0.2); BILIRUBIN,TOTAL 1.1 mg/dL (0.2-2.0); MAGNESIUM 1.9 mg/dL (1.6-3.0); PROTEIN TOTAL SERUM 7.8 g/dL (6.0-8.3)
[2016-12-25 03:07] LABS: BASOPHIL# 0.1 X10e3 (0-0.3); BASOPHIL% 0.8 % (0-2.5); EOSINOPHIL# 0.1 X10e3 (0-0.7); EOSINOPHIL% 0.7 % (0.0-7.0); HEMATOCRIT 35.6 % (38.0-50.0); HEMOGLOBIN 12.1 gm/dL (13.0-16.0); LYMPHOCYTE# 1.5 X10e3 (1.0-3.5); LYMPHOCYTE% 14.7 % (17.0-45.0); MEAN CELL VOLUME 88.6 FL (83-96); MEAN CORPUSCULAR HGB CONC 33.9 g/dL (30-36); MEAN PLATELET VOLUME 8.4 FL (6.5-11.5); MONOCYTE# 1.1 X10e3 (0-1.0); NEUTROPHIL# 7.5 X10e3 (1.5-7.1); NEUTROPHIL% 72.8 % (40-75); PLATELET COUNT 148 X10e3 (140-420); RED BLOOD COUNT 4.02 X10e (3.90-5.60); RED CELL DISTRIBUTION WIDTH 14.4 % (11.0-15.5); WHITE BLOOD COUNT 10.3 X10e3 (4.0-10.5)
[2016-12-25 03:08] LABS: DIFF IND NO
[2016-12-25 03:21] LABS: INR 2.1; PROTHROMBIN TIME (PATIENT) 22.4 SECONDS (9.6-11.5)
[2016-12-25 04:04] LABS: ALBUMIN SERUM 3.7 g/dL (3.5-5.0); ALKALINE PHOSPHATASE 78 U/L (32-92); ALT (SGPT) 12 U/L (10-40); AST (SGOT) 20 U/L (10-42); BILIRUBIN,TOTAL 1.4 mg/dL (0.2-2.0); BLOOD UREA NITROGEN 23 mg/dL (9-23); BUN/CREATININE RATIO 19.16; CARBON DIOXIDE 26 mmol/L (22-31); CHLORIDE 105 mmol/L (100-111); CREATININE SERUM 1.2 mg/dL (0.6-1.4); GLOM FILT RATE Estimated ABOVE60 mL/min (>60); GLUCOSE FASTING 106 mg/dL (70-110); POTASSIUM 3.6 mmol/L (3.5-5.1); PROTEIN TOTAL SERUM 7.1 g/dL (6.0-8.3); SODIUM 133 mmol/L (135-145)
[2016-12-25 15:27] LABS: INR 1.3; PROTHROMBIN TIME (PATIENT) 14.1 SECONDS (9.6-11.5)
[2016-12-26 06:29] LABS: HEMOGLOBIN 11.4 gm/dL (13.0-16.0); MEAN CELL VOLUME 89.6 FL (83-96); MEAN CORPUSCULAR HEMOGLOBIN 30.1 PG (28-34); MEAN CORPUSCULAR HGB CONC 33.6 g/dL (30-36); MEAN PLATELET VOLUME 8.4 FL (6.5-11.5); RED BLOOD COUNT 3.79 X10e (3.90-5.60); RED CELL DISTRIBUTION WIDTH 14.2 % (11.0-15.5); WHITE BLOOD COUNT 8.2 X10e3 (4.0-10.5)
[2016-12-26 06:44] LABS: INR 1.1; PARTIAL THROMBOPLASTIN TIME 46.6 SECONDS (23.5-31.3); PROTHROMBIN TIME (PATIENT) 11.4 SECONDS (9.6-11.5)
[2016-12-26 07:03] LABS: CALCIUM SERUM 8.1 mg/dL (8.4-10.2); CREATININE SERUM 1.3 mg/dL (0.6-1.4); GLOM FILT RATE Estimated 58.3 mL/min (>60); MAGNESIUM 2.2 mg/dL (1.6-3.0); POTASSIUM 3.4 mmol/L (3.5-5.1)
[2016-12-27 02:14] LABS: HEMOGLOBIN 10.6 gm/dL (13.0-16.0); MEAN CELL VOLUME 88.7 FL (83-96); MEAN CORPUSCULAR HEMOGLOBIN 30.3 PG (28-34); MEAN CORPUSCULAR HGB CONC 34.1 g/dL (30-36); RED BLOOD COUNT 3.49 X10e (3.90-5.60); RED CELL DISTRIBUTION WIDTH 14.1 % (11.0-15.5); WHITE BLOOD COUNT 6.2 X10e3 (4.0-10.5)
[2016-12-27 02:35] LABS: INR 1.1; PARTIAL THROMBOPLASTIN TIME 58.5 SECONDS (23.5-31.3); PROTHROMBIN TIME (PATIENT) 11.5 SECONDS (9.6-11.5)
[2016-12-27 02:38] LABS: BUN/CREATININE RATIO 18.46; CALCIUM SERUM 7.8 mg/dL (8.4-10.2); CREATININE SERUM 1.3 mg/dL (0.6-1.4); GLOM FILT RATE Estimated 58.3 mL/min (>60); MAGNESIUM 2.1 mg/dL (1.6-3.0); POTASSIUM 3.5 mmol/L (3.5-5.1)
[2016-12-28 05:41] LABS: HEMATOCRIT 28.1 % (38.0-50.0); HEMOGLOBIN 9.5 gm/dL (13.0-16.0); MEAN CELL VOLUME 89.3 FL (83-96); MEAN CORPUSCULAR HEMOGLOBIN 30.1 PG (28-34); MEAN CORPUSCULAR HGB CONC 33.7 g/dL (30-36); MEAN PLATELET VOLUME 8.2 FL (6.5-11.5); RED BLOOD COUNT 3.15 X10e (3.90-5.60); RED CELL DISTRIBUTION WIDTH 14.4 % (11.0-15.5)
[2016-12-28 06:54] LABS: INR 1.1; PARTIAL THROMBOPLASTIN TIME 68.5 SECONDS (23.5-31.3); PROTHROMBIN TIME (PATIENT) 11.9 SECONDS (9.6-11.5)
[2016-12-28 07:17] LABS: BLOOD UREA NITROGEN 16 mg/dL (9-23); BUN/CREATININE RATIO 17.77; CALCIUM SERUM 8.2 mg/dL (8.4-10.2); CARBON DIOXIDE 24 mmol/L (22-31); CHLORIDE 109 mmol/L (100-111); CREATININE SERUM 0.9 mg/dL (0.6-1.4); GLOM FILT RATE Estimated ABOVE60 mL/min (>60); GLUCOSE FASTING 105 mg/dL (70-110); POTASSIUM 4.2 mmol/L (3.5-5.1); SODIUM 138 mmol/L (135-145)
[2016-12-29 02:08] LABS: HEMATOCRIT 27.4 % (38.0-50.0); HEMOGLOBIN 9.3 gm/dL (13.0-16.0); MEAN CELL VOLUME 89.4 FL (83-96); MEAN CORPUSCULAR HEMOGLOBIN 30.3 PG (28-34); MEAN CORPUSCULAR HGB CONC 33.9 g/dL (30-36); MEAN PLATELET VOLUME 7.5 FL (6.5-11.5); RED BLOOD COUNT 3.07 X10e (3.90-5.60); RED CELL DISTRIBUTION WIDTH 14.1 % (11.0-15.5); WHITE BLOOD COUNT 3.9 X10e3 (4.0-10.5)
[2016-12-29 02:31] LABS: INR 1.1; PARTIAL THROMBOPLASTIN TIME 82.6 SECONDS (23.5-31.3); PROTHROMBIN TIME (PATIENT) 11.6 SECONDS (9.6-11.5)
[2016-12-29 02:39] LABS: BLOOD UREA NITROGEN 16 mg/dL (9-23); CARBON DIOXIDE 25 mmol/L (22-31); CHLORIDE 107 mmol/L (100-111); GLOM FILT RATE Estimated ABOVE60 mL/min (>60); GLUCOSE FASTING 106 mg/dL (70-110); POTASSIUM 3.8 mmol/L (3.5-5.1); SODIUM 132 mmol/L (135-145)
[2016-12-29] MEDS ORDERED: NORCO1 TAB 10/3 PO (12:14)
[2016-12-29] MEDS ORDERED: LOVENOX80 MG/0.8 INJ (12:15)
== END 2016-12-29 15:09 | disposition home health service (06) | DRG 728 ==
LOC: CED 11:52 → CEDOF 14:00 → C2A 20:49
PROVIDERS: Family Medicine; Internal Medicine Cardiovascular Disease; Nurse Practitioner; Urology
PROC: 30233K1 Transfusion of Nonautologous Frozen Plasma into Peripheral Vein, Percutaneous Approach (ICD-10-PCS; 2016-12-25)
PROC: 0D9Q0ZX Drainage of Anus, Open Approach, Diagnostic (ICD-10-PCS; principal; 2016-12-26)
DX: N49.2 Inflammatory disorders of scrotum (principal); I11.0 Hypertensive heart disease with heart failure; I50.9 Heart failure, unspecified; I48.2 Chronic atrial fibrillation; K61.0 Anal abscess; B95.62 Methicillin resistant Staphylococcus aureus infection as the cause of diseases classified elsewhere; E78.5 Hyperlipidemia, unspecified; Z96.0 Presence of urogenital implants; Z86.73 Personal history of transient ischemic attack (TIA), and cerebral infarction without residual deficits; Z79.01 Long term (current) use of anticoagulants; Z95.2 Presence of prosthetic heart valve; E87.6 Hypokalemia
CPT/HCPCS: 71010; 72193; 76870; 80048; 80053; 80076; 80202; 81003; 83036; 83735; 84132; 85025; 85027; 85610; 85730; 86900; 86901; 87040; 87070; 87075; 87077; 87086; 87186; 87205; 93005; 93976; 99285; J1580; J1644; J1650; J2270; J2543; J3010; J3370; J3430; J3475; P9059; Q9967

== ENCOUNTER 2017-01-04 00:39 | Emergency (ER) | payer MEDICARE ==
[~2017-01-04 00:39] MED LIST changes: +NORCO1 TAB 10/3 PO; +OMEPRAZOLE20 M1 PO
[2017-01-04 00:56] LABS: BASOPHIL% 0.5 % (0-2.5); EOSINOPHIL% 0.9 % (0.0-7.0); HEMATOCRIT 32.8 % (38.0-50.0); LYMPHOCYTE# 1.1 X10e3 (1.0-3.5); LYMPHOCYTE% 26.7 % (17.0-45.0); MEAN CELL VOLUME 89.4 FL (83-96); MEAN CORPUSCULAR HGB CONC 33.5 g/dL (30-36); MEAN PLATELET VOLUME 6.9 FL (6.5-11.5); MONOCYTE# 0.5 X10e3 (0-1.0); MONOCYTE% 11.6 % (3.0-12.0); NEUTROPHIL# 2.5 X10e3 (1.5-7.1); NEUTROPHIL% 60.3 % (40-75); PLATELET COUNT 233 X10e3 (140-420); RED BLOOD COUNT 3.67 X10e (3.90-5.60); RED CELL DISTRIBUTION WIDTH 14.5 % (11.0-15.5); WHITE BLOOD COUNT 4.1 X10e3 (4.0-10.5)
[2017-01-04 01:06] LABS: DIFF IND NO
[2017-01-04 01:16] LABS: INR 2.3; PARTIAL THROMBOPLASTIN TIME 39.4 SECONDS (23.5-31.3); PROTHROMBIN TIME (PATIENT) 25.5 SECONDS (9.6-11.5)
== END 2017-01-04 02:00 | disposition home or self-care (01) ==
LOC: CED 00:39
PROVIDERS: Emergency Medicine
DX: L76.21 Postprocedural hemorrhage of skin and subcutaneous tissue following a dermatologic procedure (principal); E78.5 Hyperlipidemia, unspecified; I11.0 Hypertensive heart disease with heart failure; I50.9 Heart failure, unspecified; Z86.73 Personal history of transient ischemic attack (TIA), and cerebral infarction without residual deficits; Z98.890 Other specified postprocedural states
CPT/HCPCS: 36415; 85025; 85610; 85730; 99283

== ENCOUNTER 2017-03-28 14:36 | Emergency (ER) | payer MEDICARE ==
--- NOTE | ~2017-03-28 | EKG ---
PATIENT: PRITI HELM UNIT #: [id number] Ventricular Rate: 66 BPM Atrial Rate: 66 BPM P-R Interval: 204 ms QRS Duration: 106 ms Q-T Interval: 452 ms QTC Calculation(Bezet): 473 ms P [place]: 51 degrees Calculated R [place]: 38 degrees Calculated T [place]: 37 degrees Diagnosis Line: Normal sinus rhythm Diagnosis Line: Left ventricular hypertrophy with repolarization Diagnosis Line: abnormality Diagnosis Line: Abnormal ECG Diagnosis Line: When compared with ECG of 25-DEC-2016 10:15, Diagnosis Line: Nonspecific T wave abnormality no longer evident Diagnosis Line: in Inferior leads Diagnosis Line: Nonspecific T wave abnormality no longer evident Diagnosis Line: in Anterolateral leads Diagnosis Line: Confirmed by KVNG ALEXANDRA MD ([id number]) on Diagnosis Line: 03/31/2017 3:40:16 PM INTERPRETING MD: IBRAHIMA ALMONTE
--- NOTE | ~2017-03-28 | CR72 ---
[facility] A Service of [facility] & [facility] RADIOLOGY TEXT RESULTS PATIENT: PRITI HELM LOCATION: [place] : 48 UNIT #: [id number] AGE: [address]: Dandy Carrasco MD SEX: M ORDER DR: [id number] [place] [id number] E MR#: [id number] Acc #: [id number] NAME: PRITI HELM. : 1950 SEX: M STUDY DATE/TIME: 03/28/2017 16:01 UNIT: SED ROOM: STUDY DESCRIPTION: CR Chest Single View Portable Attending Physician: Dandy Carrasco M.D. Ordering Physician: Dandy Carrasco M.D. Primary Care Physician: Antonino Hanson M.D. MEDICAL IMAGING REPORT This report is preliminary unless electronic signature is present. EXAM Portable chest, 03/28/17. HISTORY 66-year-old male with near-syncope for 2 weeks. Essential hypertension. Chest pain and cough for 2 weeks. COMPARISON Comparison chest 12/24/16. FINDINGS Frontal chest demonstrates clear lungs. No pleural effusion or pneumothorax. Heart size and mediastinum are within normal limits. Pulmonary vasculature unremarkable. Median sternotomy wires and cardiac valve replacement. IMPRESSION No acute cardiopulmonary findings. No change from 12/24/16. Dictated by... Oleksandr Isbell M.D. THIS IS AN ELECTRONICALLY VERIFIED REPORT Oleksandr Isbell M.D. at 03/31/2017 7:16 AM CHIO/rico TD: 03/28/2017 23:45 JOB #: [id number] MEDICAL IMAGING REPORT Page 1 of 1
[2017-03-28] MEDS ORDERED: WARFARIN PO (14:51)
[2017-03-28] MEDS ORDERED: VITAMIN E PO (14:51)
[2017-03-28] MEDS ORDERED: OMEPRAZOLE PO (14:52)
[2017-03-28] MEDS ORDERED: POTASSIUM CL PO (14:52)
[2017-03-28] MEDS ORDERED: LISINOPRIL PO (14:52)
[2017-03-28] MEDS ORDERED: HCTZ PO (14:52)
[2017-03-28] MEDS ORDERED: SIMVASTATIN PO (14:53)
[2017-03-28] MEDS ORDERED: METOPROLOL PO (14:53)
[2017-03-28] MEDS ORDERED: TAMSULOSIN PO (14:53)
[2017-03-28 15:08] LABS: BASOPHIL% 0.5 % (0-2.5); EOSINOPHIL# 0.3 X10e3 (0-0.7); EOSINOPHIL% 2.6 % (0.0-7.0); HEMATOCRIT 34.3 % (38.0-50.0); HEMOGLOBIN 11.6 gm/dL (13.0-16.0); LYMPHOCYTE# 1.8 X10e3 (1.0-3.5); LYMPHOCYTE% 18.1 % (17.0-45.0); MEAN CELL VOLUME 85.7 FL (83-96); MEAN CORPUSCULAR HGB CONC 33.9 g/dL (30-36); MEAN PLATELET VOLUME 7.9 FL (6.5-11.5); MONOCYTE# 0.7 X10e3 (0-1.0); MONOCYTE% 7.3 % (3.0-12.0); NEUTROPHIL# 7.1 X10e3 (1.5-7.1); NEUTROPHIL% 71.5 % (40-75); PLATELET COUNT 253 X10e3 (140-420); RED CELL DISTRIBUTION WIDTH 14.8 % (11.0-15.5)
[2017-03-28 15:15] LABS: DIFF IND NO
[2017-03-28 15:25] LABS: POC - CKMB 2.6 ng/mL (0.0-7.9); POC - TROPONIN <0.05 ng/mL (<=0.05)
[2017-03-28 15:29] LABS: ALBUMIN SERUM 4.1 g/dL (3.5-5.0); BILIRUBIN, DIRECT 0.1 mg/dL (0.0-0.2); BILIRUBIN,INDIRECT 0.6 mg/dL (0.0-0.9); BILIRUBIN,TOTAL 0.7 mg/dL (0.2-2.0); BUN/CREATININE RATIO 26.33; CALCIUM SERUM 8.7 mg/dL (8.4-10.2); GLOM FILT RATE Estimated 20.4 mL/min (>60); POTASSIUM 3.4 mmol/L (3.5-5.1); PROTEIN TOTAL SERUM 8.3 g/dL (6.0-8.3)
[2017-03-28 15:31] LABS: PARTIAL THROMBOPLASTIN TIME 53.1 SECONDS (25.6-38.1)
[2017-03-28 15:33] LABS: INR 5.9
[2017-03-28 17:02] LABS: URINE APPEARANCE CLEAR; URINE BILIRUBIN NEG (NEG); URINE BLOOD NEG (NEG); URINE COLOR YELLOW; URINE GLUCOSE NEG (NORM); URINE KETONE NEG (NEG); URINE LEUKOCYTE ESTERASE NEG (NEG); URINE NITRATE NEG (NEG); URINE PH 5.5 (5-8); URINE PROTEIN NEG (NEG); URINE SOURCE CLEAN CATCH; URINE UROBILINOGEN 0.2 MG/DL (NORM)
[2017-03-28 17:18] LABS: MICRO INDICATED? NO
== END 2017-03-28 18:31 | disposition home or self-care (01) ==
LOC: SED 14:36
PROVIDERS: Emergency Medicine
DX: I95.9 Hypotension, unspecified (principal); N19 Unspecified kidney failure; T45.511A Poisoning by anticoagulants, accidental (unintentional), initial encounter; I50.9 Heart failure, unspecified; Z79.899 Other long term (current) drug therapy
CPT/HCPCS: 36415; 71010; 80048; 80076; 81003; 82270; 82553; 84484; 85025; 85610; 85730; 93005; 96360; 99284